=== PATIENT | female | born 1965 | race Hispanic/Latino ===

== ENCOUNTER 2024-11-27 11:47 | Day surgery (SDC) | payer BC ==
[2024-11-27 09:43] LABS: Absolute Lymphocytes (CBC) 0.5 K/uL (0.7-4.9); Hematocrit 40.9 % (36.0-45.0); Hemoglobin 14.0 g/dL (12.0-15.0); MCH 33.6 pg (27.0-35.0); MCHC 34.1 g/dL (32.0-36.0); MCV 98.5 fL (80-100); MPV 8.5 fL (7.6-11.3); Nucleated RBC Absolute Count 0.0 (0-0); Nucleated Red Blood Cells % 0.0 % (0-0); RBC Red Blood Cell Count 4.15 M/uL (3.86-4.86); White Blood Count 5.00 thou/uL (4.3-10.9)
--- NOTE | 2024-11-27 09:48 | RAD REPORT ---
EXAMINATION: TWO VIEW CHEST XR CLINICAL INDICATION: Female, 59 years old. Hypertension. pre op for day surgery TECHNIQUE: 2 view radiographs of the chest were performed. COMPARISON: No prior exam. FINDINGS: The lungs are well inflated and clear. No pneumothorax or sizable effusion. The heart is normal in si ze. Mediastinal contours are unremarkable. IMPRESSION: No acute or significant abnormalities.
[2024-11-27 09:49] LABS: ALT/SGPT 48.0 U/L (13-56); AST/SGOT 19.0 U/L (15-37); Albumin 3.8 g/dL (3.4-5.0); Albumin/Globulin Ratio 1.1 (1.1-1.8); Alkaline Phosphatase 111.0 U/L (45-117); Anion Gap 6.6 mEq/L (5.0-15.0); BUN Blood Urea Nitrogen 10.0 mg/dL (7-18); Bilirubin Indirect, Calculated 0.5 mg/dL (0.2-0.8); Globulin 3.6 g/dL (2.3-3.5); Glucose Level 102.0 mg/dL (74-106); Lipase 15.0 U/L (13-75); Potassium 3.6 mEq/L (3.5-5.1)
[2024-11-27] MEDS: Ringers Lactate 1,000 ML IV ONE ×2 (12:15→15:05)
[2024-11-27] MEDS ORDERED: MIDAZOLAM HCL 2 MG/2 ML INJ ONE (13:40)
[2024-11-27] MEDS ORDERED: LIDOCAINE 2% MPF 5 ML VIAL ONE (13:40)
[2024-11-27] MEDS ORDERED: ROCURONIUM 50 MG/5 ML VIAL IV ONE (13:40)
[2024-11-27] MEDS ORDERED: KETOROLAC 30 MG/ML INJ ONE (13:40)
[2024-11-27] MEDS ORDERED: FENTANYL CITR 100 MCG/2 ML ONE ×2 (13:40→14:24)
[2024-11-27] MEDS ORDERED: ONDANSETRON 4 MG/2 ML VIAL ONE (13:40)
[2024-11-27] MEDS: CEFOXITIN SODIUM 1 GM/VIAL ONE (13:47)
[2024-11-27] MEDS: BUPIVACAINE 0.5% PF 10 ML VIAL ONE (14:20)
[2024-11-27] MEDS ORDERED: GLYCOPYRROLATE 0.2 MG/ML SYR ONE (14:49)
[2024-11-27] MEDS ORDERED: NEOSTIGMINE 1 MG/ML -10 ML VIAL ONE (14:49)
--- NOTE | 2024-11-27 14:57 | P.BOP ---
Preoperative diagnosis: symptomatic cholelithiasis, RUQ abd pain, umbilical hernia Postoperative diagnosis: same Primary procedure: 1. Laparoscopic cholecystectomy Secondary procedure: 2. umbilical hernia repair Estimated blood loss: <10cc Specimen: gb Findings: as above Anesthesia: General Complications: None Transferred to: Recovery Room Condition: Good
[2024-11-27] MEDS: Mastisol Adhesive Liq ONE (15:05)
--- NOTE | 2024-11-27 16:46 | OP ---
Date of Procedure: 11/27/2024 Surgeon: Paul Birmingham MD Preoperative Diagnoses: Symptomatic cholelithiasis, right upper quadrant abdominal pain, umbilical h ernia. Postoperative Diagnoses: Symptomatic cholelithiasis, right upper quadrant abdominal pain, umbilical hernia. Procedures: 1. Laparoscopic cholecystectomy. 2. Umbilical hernia repair. Estimated Blood Loss: Less than 10 cc. Anesthesia: General plus local. Specimen: Gallbladder. Finding: As above. Small tiny umbilical hernia present, used to put a Loli trocar through. Anesthesia: General plus local. Indication: This is the case of a female, who came to us with above diagnoses. Fully explained the benefits, alternatives, and risks of laparoscopic possible open cholecystectomy and umbilical hernia repair, which include, but not limited to, infection, bleeding, damage to adjacent structures, anest hesia complication, choledocholithiasis, bile leak, pancreatitis, SD, and even . She also under stands this might not relieve any symptoms, she might need more than one surgical intervention. She understood, signed a consent. Description Of Procedure: The patient was brought to the operating room, placed in supine position. Anesthesia was induced without complication. Abdominal area was prepped and draped in a sterile fas hion. Marcaine 0.5% injectable for local anesthetic followed by sharp incision of skin in the infrau mbilical region. Incision was carried down to fascia, which was opened under direct vision. Periton eum was encountered opened under direct vision. Vicryl #1 placed inside the fascia. Loli trocar w as carefully introduced. Pneumoperitoneum was obtained. I have a small hernia that was used and was seen at the beginning of the case. That area was opened with the umbilical incision. Once we have the Loli trocar in, we proceeded to place 3 more trocars, 5 mm each one of them. We noticed multip le omental adhesions to the gallbladder. So, with the help of LigaSure, we were able to release thos e until we have visualization of the fundus and infundibulum. A grasper was placed in the fundus of the gallbladder, another one in the infundibulum retracting the gallbladder in the inferolateral fash ion exposing the triangle of Calot and obtaining critical view. Cystic duct and cystic artery were c learly isolated and freed circumferentially and a connection between those and the gallbladder were c learly identified. I proceeded to ligate those by using at least 3 clips proximal, 1 clip distal, li gation in the middle. Same was done with the cystic artery. No bile leak. No bleeding. The gallbl adder was removed from the liver using the Bovie cauterizer, and removed from the abdominal cavity us ing EndoCatch through the umbilical incision. The area was inspected once again. No bile leak. No bleeding. The gallbladder was removed. At that moment, the gallbladder fossa looks intact. No bile leak. No bleeding. Clips were intact. At that moment, I proceeded to remove the trocars under dir ect vision. Deflated the pneumoperitoneum. Closed the fascia and umbilical hernia with #1 Vicryl. Irrigated subcutaneous tissue, closed that with 3-0 chromic, and the skin in subcuticular fashion and Steri-Strips on top. Sponge counts and instrument counts were correct. The patient tolerated the p rocedure well. The patient was sent to recovery in stable condition. CYNTHIA/BIB Voice ID: [id number] Report ID: [id number]
[2024-11-27] MEDS: ONDANSETRON 4 MG/2 ML VIAL ONE (16:48)
--- NOTE | 2024-11-27 16:51 | DS ---
Diagnoses: Symptomatic cholelithiasis, right upper quadrant abdominal pain, umbilical hernia. Procedures: Laparoscopic cholecystectomy and umbilical hernia repair. Condition: Stable. Disposition: Home. Activity: As tolerated. No heavy lifting. Discharge Instructions: Follow up in my office in 1 week. Call for appointment at [phone]. Keep a javon dry for 48 hours, then may shower. Keep Steri-Strip intact. Medications, see orders. CYNTHIA/BIB Voice ID: [id number] Report ID: [id number]
[2024-11-27 17:01] VITALS: BP 113/64; TEMP 98.7; O2SAT 96
== END 2024-11-27 18:00 | disposition home or self-care (01) ==
LOC: OR 11:47
PROVIDERS: ATTEND Surgery
PROC: 0FT44ZZ Resection of Gallbladder, Percutaneous Endoscopic Approach (ICD-10-PCS; principal; 2024-11-27 13:30)
DX: K80.20 Calculus of gallbladder without cholecystitis without obstruction (principal); K42.9 Umbilical hernia without obstruction or gangrene; R10.11 Right upper quadrant pain
CPT/HCPCS: 93005; 85025; 80048; 36415; 80076; 83690; 71046; 47562; J2704; J2710; J2003; J2250; J3010 ×2; J1100; J0694; J2405 ×2; J7120 ×2; 88304